=== PATIENT | male | born 1960 | race African-American/Black ===

== ENCOUNTER 2018-10-12 10:34 | Observation (INO) | payer MEDICARE, MEDICAID ==
--- NOTE | 2018-10-12 11:37 | RAD ---
2 views left hip HISTORY: Fall with left hip pain. AP and lateral views left hip is obtained. There appears to be a abnormal contour involving the left femoral head and neck. This may be position al versus chronic changes versus impacted left femoral head and neck fracture. To further characterize I do recommend correlation with left hip CT. IMPRESSION: possible chronic changes proximal left femoral head and neck versus impacted left femoral head fracture.
--- NOTE | 2018-10-12 11:44 | RAD ---
Exam: One view pelvis HISTORY: Fall. Left hip pain. COMPARISON: None FINDINGS: Sacroiliac joints are symmetric. Sacral alar preserved Intact bony pelvis. Suboptimal evaluation the right hip. Suboptimal evaluation left hip. Questionable irregularity involving the contour of the right femoral head. Left femoral head appears to be unremarkable Nonspecific increased density projecting over the lateral aspect of the right hip. IMPRESSION: Limited evaluation the left hip. Refer to dedicated to the left hip radiograph report for further detail.
--- NOTE | 2018-10-12 12:16 | CT ---
CT Lower Ext Lt WO Con HISTORY: Fall, left hip pain COMPARISON: X-ray from same date FINDINGS: There are degenerative changes in the left hip joint. No acute fracture or dislocation is i dentified. IMPRESSION: No CT evidence of left hip fracture or dislocation.
[2018-10-12] MEDS ORDERED: HYDROcodone/Acetaminophen 5/325 mg Tablet ONE ×2 (15:34→15:42)
[2018-10-12] MEDS ORDERED: Ketorolac Tromethamine 30 MG/ML VIAL ONE (15:35)
[2018-10-12] MEDS ORDERED: Ondansetron ODT 4 MG TAB SL PRN (15:45)
[2018-10-12] MEDS ORDERED: Ondansetron PF 4 MG/2 ML Vial IVP PRN (15:45)
[2018-10-12] MEDS ORDERED: HYDROcodone/Acetaminophen 5/325 mg Tablet PO PRN (19:40)
[2018-10-12] MEDS ORDERED: Acetaminophen 325 MG TAB PO PRN (19:40)
[2018-10-12] MEDS ORDERED: cloNIDine 0.1 MG TAB PO PRN (19:44)
[2018-10-12] MEDS ORDERED: diphenhydrAMINE 25 MG CAP PO PRN (19:44)
[2018-10-12] MEDS: Famotidine 20 MG TAB PO SCH (20:22)
[2018-10-12] MEDS: Apixaban 5 MG TAB PO SCH (20:22)
[2018-10-12] MEDS: Potassium Chloride 10 MEQ TAB PO SCH (20:22)
[2018-10-12 20:30] VITALS: BMI 36.9
--- NOTE | 2018-10-13 08:26 | HP ---
CHIEF COMPLAINT: Fall and left hip pain. HISTORY OF PRESENT ILLNESS: Mr. Luz is a 58-year-old male with past medical history significant for morbid obesity, chronic atrial fibrillation on Eliquis, hypertension and hyperlipidemia, who presented to the hospital with complaints of left hip pain after suffering from a mechanical fall at home. The patient states that he had been feeling well and was in his usual state of health until earlier today. He was headed to the kitchen to get a drink of water and felt his left knee buckle underneath him. He was going to reach for the couch, however, fell on the ground on his left side. He was unable to get himself up. His home health nurse did come and check on him, and he was brought to the [facility] for further workup and evaluation. The patient reports no presyncope, dizziness, or lightheadedness to me. No chest pain prior to his fall. Workup on arrival included a CT scan of the left lower extremity without contrast, which showed no evidence of acute fracture or dislocation. The patient was provided pain control with Toradol and [place]. This did help his pain, however, he was still unable to completely bear weight or have full range of motion secondary to pain. He was referred to [facility] for assessment and admission. REVIEW OF SYSTEMS: A 12-point review of systems performed and is negative except that stated above. The patient has had no recent fevers, illnesses, or cough. No blood in his urine or stool. Able to perform all of his daily routines at home without issue. ALLERGIES: NO KNOWN DRUG ALLERGIES. HOME MEDICATIONS: 1. Terazosin 1 mg capsule, one cap daily. 2. Diphenhydramine 25 mg oral capsule, one cap q.6 hours as needed. 3. Metoprolol succinate 25 mg one tablet daily. 4. Crestor 20 mg tablet, one tablet daily. 5. Vitamin D 50,000 international units, one capsule weekly. 6. Hydrochlorothiazide 25 mg one tablet p.o. daily. 7. Lisinopril 40 mg tablet, one tablet daily. 8. Nifedipine 90 mg tablet, one tablet daily. 9. Eliquis 5 mg one tablet b.i.d. 10. Klor-Con 10 mEq one tablet two times a day. 11. Clonidine 0.1 mg one tab q.8 hours p.r.n. blood pressure greater than 180 systolic. 12. Allopurinol 300 mg tablet, one tablet daily. 13. Ventolin inhaler 2 puffs as needed. PAST MEDICAL HISTORY: Significant for atrial fibrillation, hyperlipidemia, hypertension, gout, BPH. PAST SURGICAL HISTORY: The patient has history of exploratory laparotomy in the past without history of colectomy or evidence of cancer per patient, history of appendectomy and cholecystectomy. SOCIAL HISTORY: The patient lives alone. He has a [id number] smoking history. He started at the age of 14 and quit about 2 years ago. At this time, he is a nonsmoker, nondrinker, and does not use illicit drugs. He is a retired [employer] supervisor. FAMILY HISTORY: Noncontributory. PHYSICAL EXAMINATION: VITAL SIGNS: O2 saturation is 100% on room air, pulse is 75, blood pressure 120 /87. GENERAL: The patient is an obese male, resting comfortably in bed, in no acute distress. HEENT: Head is atraumatic and normocephalic. Mucous membranes are moist. NECK: No lymphadenopathy. Trachea is midline. CV: S1 and S2. Irregular rhythm. No appreciable murmurs, rubs, or gallops. Not tachycardic. LUNGS: Regular respiratory rate and pattern. Clear to auscultation bilaterally. No wheezes, rhonchi, or crackles noted. ABDOMEN: Obese, positive bowel sounds. There is a 6-inch abdominal scar on the left lateral side of his abdomen. EXTREMITIES: No pitting edema bilaterally. He has no gross joint swelling or other notable injury. Per exam, he is mildly tender to palpation on the left side of his hip. LAB WORK: No labs obtained in the ER. ASSESSMENT: 1. Intractable left hip pain status post mechanical fall. No acute fracture or dislocation per CT scan. 2. Morbid obesity. 3. Chronic atrial fibrillation on Eliquis, CHADS-VASc equals 1. 4. Obstructive sleep apnea. 5. Hypertension. 6. Gout. 7. Chronic obstructive pulmonary disease/[id number] smoking history, but the patient did quit 2 years ago. PLAN: At this time, we will admit the patient for continued pain control and physical therapy. We will go ahead and obtain labs to assess kidney and liver function, so pain medications can be properly dosed. We will consult Physical Therapy along with Case Management for inpatient rehab placement. If pain does not improve, may need to repeat a CT to assess for occult fracture, although the patient's pain has steadily improved since he has been here. We will restart the patient's home medications when reconciled including his Eliquis. Further recommendations based on hospital course. The care of this patient was discussed with Dr. Palacios, who agrees with the above. Job ID: [id number] [facility]
[2018-10-13] MEDS: Famotidine 20 MG TAB PO SCH ×2 (10:12→22:22)
[2018-10-13] MEDS: Hydrochlorothiazide 25 MG TAB PO SCH (10:13)
[2018-10-13] MEDS: Potassium Chloride 10 MEQ TAB PO SCH ×2 (10:13→22:22)
[2018-10-13] MEDS: Rosuvastatin 20 MG TAB PO SCH (10:13)
[2018-10-13] MEDS: Lisinopril 20 MG TAB PO SCH (10:13)
[2018-10-13] MEDS: Allopurinol 300 MG TAB PO SCH (10:13)
[2018-10-13] MEDS: Apixaban 5 MG TAB PO SCH ×2 (10:14→22:22)
[2018-10-13] MEDS: PROVENTIL INHALER 6.7 G (200 INHALATIONS) INH SCH ×6 (10:20→22:41)
[2018-10-13] MEDS: Terazosin HCl 1 MG CAP PO SCH (11:53)
[2018-10-13] MEDS: NIFEdipine XL 90 MG TAB PO SCH (11:53)
[2018-10-13] MEDS: Ergocalciferol 1.25 MG(50,000 UNITS) CAP PO SCH (11:53)
[2018-10-13 11:55] LABS: #Eosinphils 0.1 thou/uL (0.0-0.7); #Lymphocytes 1.4 thou/uL (1.20-3.40); #Monocytes 0.6 thou/uL (0.11-0.59); #Neutrophils 6.7 thou/uL (1.40-6.50); %Basophils 0.2 % (0.0-1.0); %Eosinophils 0.6 % (0.0-10.0); %Lymphocytes 15.7 % (21.0-51.0); %Monocytes 6.5 % (0.0-10.0); Hemoglobin 13.9 g/dL (14.0-18.0); Mean Corpuscular HGB CONC 32.4 g/dL (32.0-36.0); Mean Corpuscular Hemoglobin 30.4 pg (27.0-31.0); Mean Corpuscular Volume 93.8 fL (78.0-98.0); Mean Platelet Volume 8.3 fL (7.4-10.4); Platelet Count 148 thou/uL (130-400); RBC Distribution Width 13.6 % (11.5-14.5); Red Blood Cell (RBC) Count 4.57 mill/uL (4.70-6.10); White Blood Cell (WBC) Count 8.7 thou/uL (4.8-10.8)
--- NOTE | 2018-10-13 15:02 | PDOC.PN ---
- Subjective Encounter Start Date: 10/13/18 Encounter Start Time: 14:00 Subjective: Patient walking in the conde with the walking program. Reports hip is better -: Will need a bariatric rollator to prevent falls at home, his current one -: is broken which is one reason he may have fallen. - Objective Vital Signs & Weight: Vital Signs (12 hours) Temp Pulse Resp BP BP BP Pulse Ox 10/13/18 12:00 97.4 F L 75 20 135/88 98 10/13/18 11:53 132/85 10/13/18 10:13 132/85 10/13/18 08:00 97.8 F 79 18 132/85 95 Weight Weight 113.4 kg Result Diagrams: 10/12/18 20:33 Phys Exam - Physical Examination HEENT: PERRLA, moist MMs Musculoskeletal: no edema, edema present Neurological: moves all 4 limbs Dx/Plan (1) Intractable pain Code(s): R52 - PAIN, UNSPECIFIED Status: Acute (2) COPD (chronic obstructive pulmonary disease) Status: Chronic (3) A-fib Code(s): I48.91 - UNSPECIFIED ATRIAL FIBRILLATION Status: Chronic (4) Fall Code(s): W19.XXXA - UNSPECIFIED FALL, INITIAL ENCOUNTER Status: Acute (5) Hematoma of hip Code(s): S70.00XA - CONTUSION OF UNSPECIFIED HIP, INITIAL ENCOUNTER Status: Acute - Plan cont current plan of care PT discharged today, recommends PT at home -: Patient will need a new bariatric rollator for home use to reduce falls due -: to multiple co-morbities including obesity, Afib, on Eliquis, HTN -: Dr. Yanes has been consulted to write the order for the rollator. * .
[2018-10-13 15:29] LABS: ALT (SGPT) 142 U/L (8-55); AST (SGOT) 122 U/L (5-34); Alkaline Phosphatase 115 U/L (40-150); Anion Gap 11 mmol/L (10-20); BUN (Urea Nitrogen) 13 mg/dL (8.4-25.7); Bilirubin, Total 0.6 mg/dL (0.2-1.2); Calc. Creatinine Clearance 143 mL/min (70-130); Calcium 9.5 mg/dL (7.8-10.44); Carbon Dioxide 29 mmol/L (22-29); Chloride 101 mmol/L (98-107); Estimated GFR-MDRD Greater than 90; Globulin 3.5 g/dL (2.4-3.5); Glucose 83 mg/dL (70-105); Potassium 3.9 mmol/L (3.5-5.1); Protein, Total 7.5 g/dL (6.0-8.3); Sodium 137 mmol/L (136-145)
[2018-10-14] MEDS: PROVENTIL INHALER 6.7 G (200 INHALATIONS) INH SCH ×3 (01:35→10:46)
[2018-10-14 06:32] LABS: Anion Gap 10 mmol/L (10-20); BUN (Urea Nitrogen) 18 mg/dL (8.4-25.7); Calc. Creatinine Clearance 154 mL/min (70-130); Calcium 9.4 mg/dL (7.8-10.44); Carbon Dioxide 28 mmol/L (22-29); Chloride 103 mmol/L (98-107); Estimated GFR-MDRD Greater than 90; Glucose 95 mg/dL (70-105); Potassium 4.3 mmol/L (3.5-5.1); Sodium 137 mmol/L (136-145)
[2018-10-14 07:42] VITALS: BP 121/88; TEMP 98.5
[2018-10-14] MEDS: Potassium Chloride 10 MEQ TAB PO SCH (09:48)
[2018-10-14] MEDS: Allopurinol 300 MG TAB PO SCH (09:48)
[2018-10-14] MEDS: Lisinopril 20 MG TAB PO SCH (09:48)
[2018-10-14] MEDS: Hydrochlorothiazide 25 MG TAB PO SCH (09:48)
[2018-10-14] MEDS: NIFEdipine XL 90 MG TAB PO SCH (09:48)
[2018-10-14] MEDS: Ergocalciferol 1.25 MG(50,000 UNITS) CAP PO SCH (09:48)
[2018-10-14] MEDS: Apixaban 5 MG TAB PO SCH (09:48)
[2018-10-14] MEDS: Rosuvastatin 20 MG TAB PO SCH (09:49)
[2018-10-14] MEDS: Famotidine 20 MG TAB PO SCH (09:49)
[2018-10-14] MEDS: Terazosin HCl 1 MG CAP PO SCH (09:49)
--- NOTE | 2018-10-14 15:27 | PDOC.EVN ---
Event Note - Event Note Event Note: The chart was reviewed for the purpose of Utilization Management. The patient's medical acuity does not met the level of Inpatient Therefore under the Medicare Provision Code 44, the status will be changed to Observation. The patient's attending has been notified and agrees.
== END 2018-10-14 12:12 | disposition home or self-care (01) ==
LOC: ERS 10:34 → INTOOBSV 15:45 → T4-B 15:45
PROVIDERS: ADMIT Internal Medicine; ATTEND Internal Medicine
DX: M25.552 Pain in left hip (principal); S70.02XA Contusion of left hip, initial encounter; I48.2 Chronic atrial fibrillation; I10 Essential (primary) hypertension; E78.5 Hyperlipidemia, unspecified; M10.9 Gout, unspecified; N40.0 Benign prostatic hyperplasia without lower urinary tract symptoms; G47.33 Obstructive sleep apnea (adult) (pediatric); J44.9 Chronic obstructive pulmonary disease, unspecified; E66.01 Morbid (severe) obesity due to excess calories; Z68.36 Body mass index [BMI] 36.0-36.9, adult; Z87.891 Personal history of nicotine dependence; Z79.01 Long term (current) use of anticoagulants; Z79.899 Other long term (current) drug therapy; Z98.890 Other specified postprocedural states; W19.XXXA Unspecified fall, initial encounter; Y92.009 Unspecified place in unspecified non-institutional (private) residence as the place of occurrence of the external cause
CPT/HCPCS: 36415; 72170; 80048; 80053; 85025; 96374; J1885; J2405

== ENCOUNTER 2019-10-03 15:56 | Emergency (ER) | payer MEDICARE, MEDICAID ==
[2019-10-03] MEDS ORDERED: Ketorolac Tromethamine 30 MG/ML VIAL ONE (16:16)
--- NOTE | 2019-10-03 16:40 | ULT ---
LEFT LOWER EXTREMITY VENOUS ULRASOUND: 10/03/19 HISTORY: Left lower extremity edema and pain. TECHNIQUE: Multiplanar henriquez scale and color Doppler images were obtained in a left lower extremity venous ultras ound. Spectral analysis of the Doppler waveforms were performed. FINDINGS: Left common femoral vein, profunda femoral vein, superficial femoral vein, and popliteal vein are nor mal in appearance without visible thrombus. These vessels demonstrate normal compression, flow, and a ugmentation. The posterior tibial vein and greater saphenous vein are also patent. IMPRESSION: No evidence of DVT. POS: CARLOS
[2019-10-03 16:45] LABS: #Basophils 0.1 thou/uL (0.0-0.2); #Eosinphils 0.1 thou/uL (0.0-0.7); #Monocytes 0.5 thou/uL (0.11-0.59); %Basophils 1.3 % (0.0-1.0); %Eosinophils 0.8 % (0.0-10.0); %Lymphocytes 30.4 % (21.0-51.0); %Monocytes 7.6 % (0.0-10.0); %Neutrophils 59.9 % (42.0-75.0); Hemoglobin 13.5 g/dL (14.0-18.0); Mean Corpuscular HGB CONC 32.6 g/dL (32.0-36.0); Mean Corpuscular Hemoglobin 29.9 pg (27.0-31.0); Mean Corpuscular Volume 91.6 fL (78.0-98.0); Mean Platelet Volume 7.8 fL (7.4-10.4); Platelet Count 160 thou/uL (130-400); RBC Distribution Width 13.2 % (11.5-14.5); Red Blood Cell (RBC) Count 4.53 mill/uL (4.70-6.10); White Blood Cell (WBC) Count 6.6 thou/uL (4.8-10.8)
[2019-10-03 16:52] LABS: INR-International Normal Ratio 1.3; Prothrombin Time 16.5 sec (12.0-14.7)
[2019-10-03 16:53] LABS: D-Dimer Test 0.39 *mcg/mL (0.27-0.43)
[2019-10-03 17:06] LABS: ALT (SGPT) 11 U/L (8-55); AST (SGOT) 15 U/L (5-34); Alkaline Phosphatase 90 U/L (40-110); Anion Gap 12 mmol/L (10-20); BUN (Urea Nitrogen) 16 mg/dL (8.4-25.7); Bilirubin, Total 0.5 mg/dL (0.2-1.2); CK (CPK) 147 U/L (30-200); Calc. Creatinine Clearance 0 mL/min (70-130); Calcium 9.3 mg/dL (7.8-10.44); Carbon Dioxide 25 mmol/L (22-29); Chloride 104 mmol/L (98-107); Estimated GFR-MDRD Greater than 90; Globulin 3.7 g/dL (2.4-3.5); Glucose 84 mg/dL (70-105); Potassium 3.6 mmol/L (3.5-5.1); Protein, Total 7.7 g/dL (6.0-8.3); Sodium 137 mmol/L (136-145)
== END 2019-10-03 17:49 | disposition home or self-care (01) ==
LOC: ERS 15:56
DX: M79.605 Pain in left leg (principal); I48.91 Unspecified atrial fibrillation; E78.5 Hyperlipidemia, unspecified; E78.00 Pure hypercholesterolemia, unspecified; I10 Essential (primary) hypertension
CPT/HCPCS: 36415; 80053; 82550; 85025; 85379; 85610; 85730; 96374; J1885

== ENCOUNTER 2025-01-09 21:15 | Emergency (ER) | payer MEDICARE, MEDICAID ==
[2025-01-10] MEDS ORDERED: HYDROcodone/Acetaminophen 5/325 mg Tablet ONE (00:26)
== END 2025-01-10 04:41 ==
LOC: ERS 21:15
DX: S39.92XA Unspecified injury of lower back, initial encounter (principal); I10 Essential (primary) hypertension; I48.91 Unspecified atrial fibrillation; W18.40XA Slipping, tripping and stumbling without falling, unspecified, initial encounter
CPT/HCPCS: 70450; 72131; 72192